=== PATIENT | female | born 1990 | race Caucasian/White ===

== ENCOUNTER 2016-12-14 09:01 | Emergency (ER) | payer OTHER ==
[2016-12-14 09:07] VITALS: RESP 16
[2016-12-14] MEDS ORDERED: LORazepam 2 MG/ML INJ ONE (09:25)
--- NOTE | 2016-12-14 09:37 | CPEKG ---
Heart Rate: 98 RR Interval: 612 P-R Interval: 140 QRSD Interval: 90 QT Interval: 356 QTC Interval: 455 P [place]: 51 QRS [place]: 97 T Wave [place]: 23 EKG Severity - OTHERWISE NORMAL ECG - EKG Impression: SINUS RHYTHM EKG Impression: BORDERLINE RIGHT AXIS DEVIATION EKG Impression: NONSPECIFIC ST_T WAVE ABNORMAILITES Electronically Signed By: Archie Solano 16-Dec-2016 14:45:10
[2016-12-14] MEDS ORDERED: LORazepam 2 MG/ML INJ IVP ONE (09:39)
[2016-12-14 09:42] LABS: % IMMATURE GRANULYOCYTES 0.4 % (0.0-1.1); ABSOLUTE IMMATURE GRANULOCYTES 0.05 10^3/uL (0.00-0.10); ADD DIFF? NO; ADD MORPH? NO; ADD SCAN? NO; ATYPICAL LYMPHOCYTE FLAG 10 (0-99); FRAGMENT RBC FLAG 0 (0-99); HEMATOCRIT 44.9 % (38.0-47.0); HEMOGLOBIN 16.2 g/dL (12.6-16.3); LEFT SHIFT FLG 0 (0-99); LIPEMIA HEMOLYSIS FLAG 90 (0-99); MEAN CELL HEMOGLOBIN 31.6 pg (27.9-34.1); MEAN CELL HEMOGLOBIN CONCENTR. 36.1 g/dL (32.4-36.7); MEAN CELL VOLUME 87.7 fL (81.5-99.8); MEAN PLATELET VOLUME 10.1 fL (8.7-11.7); PLATELET CLUMPS FLAG 10 (0-99); PLATELET COUNT 362 10^3/uL (150-400); RED BLOOD CELL COUNT 5.12 10^6/uL (4.18-5.33); RED CELL DISTRIBUTION WIDTH 12.6 % (11.5-15.2)
[2016-12-14 09:58] LABS: ANION GAP 13 mEq/L (8-16); CALCIUM 10.2 mg/dL (8.5-10.4); CARBON DIOXIDE 20 mEq/l (22-31); CHLORIDE 107 mEq/L (97-110); CREATININE 0.7 mg/dL (0.6-1.0); GLOMERULAR FILTRATION RATE > 60; GLUCOSE 91 mg/dL (70-100); POTASSIUM 4.1 mEq/L (3.5-5.2); SODIUM 140 mEq/L (134-144)
[2016-12-14 10:08] LABS: TROPONIN I < 0.012 ng/mL (0-0.034)
[2016-12-14] MEDS ORDERED: AZITHROMYCIN 250 MG TAB PO ONE (10:22)
--- NOTE | 2016-12-14 10:36 | EDPHY ---
H & P Stated Complaint: sob - Personal History LMP (Females 10-55): 1-7 Days Ago Current Tetanus Diphtheria and Acellular Pertussis (TDAP): No - Medical/Surgical History Hx Asthma: No Hx Chronic Respiratory Disease: No Hx Diabetes: No Hx Cardiac Disease: No Hx Renal Disease: No Hx Cirrhosis: No Hx Alcoholism: No Hx HIV/AIDS: No Hx Splenectomy or Spleen Trauma: No - Social History Smoking Status: Current some day smoker HPI/ROS: Chief complaint: Shortness of breath History of present illness: This is a 26-year-old female who presents to the emergency department for evaluation of shortness of breath. Patient reports the onset of symptoms over the last few days. She states symptoms are slowly worsening. It is now hard to catch her breath. She has associated numbness and tingling in both of her hands. She does have a history of anxiety and is wondering if this is what is causing her symptoms. She does report prior to the onset of trouble breathing she developed cold symptoms including fevers and cough although she feels like those have improved. Review of systems: A 10 point review of systems was obtained and other than described above was negative (Yomi Ornelas) - Physical Exam Exam: General Appearance: Alert, nontoxic. Eyes: Pupils equal and round no pallor or injection. ENT: Tympanic membranes, external auditory canals, external ears and surrounding soft tissue including over the mastoids are unremarkable. Nasopharynx is not injected. There is no rhinorrhea. Oropharynx is mildly injected. There is no edema. There is no exudate. There is no asymmetry. The uvula is midline. No elevation of the tongue. There is no hoarseness, no drooling, no trismus, no stridor. Respiratory: There are no retractions, lungs are clear to auscultation. Cardiovascular: Regular rate and rhythm. Gastrointestinal: Abdomen is soft and nontender, no masses, bowel sounds normal. Neurological: Alert and oriented x4. Strength and sensation intact and symmetrical. Skin: Warm and dry, no rashes. Musculoskeletal: Neck is supple nontender. Extremities are symmetrical, full range of motion. Psychiatric: Patient is oriented X 3, there is no agitation. (Yomi Ornelas) Constitutional: Initial Vital Signs Temperature (C) 37.1 C 12/14/16 09:04 Heart Rate 104 H 12/14/16 09:04 Respiratory Rate 16 12/14/16 09:04 Blood Pressure 120/93 H 12/14/16 09:04 O2 Sat (%) 95 12/14/16 09:04 O2 Delivery Mode Room Air Allergies/Adverse Reactions: No Known Allergies Allergy (Unverified 12/14/16 10:39) Home Medications: Medication Instructions Recorded Azithromycin 250 mg PO DAILY 4 Days 12/14/16 Medical Decision Making - Diagnostics Imaging Results: Imaging Impressions Chest X-Ray 12/14/16 10:01 Impression: Left upper lobe pneumonia. Findings and recommendations discussed with Emergency Department physician, JERSON Enriquez at 10:17 hour, 12/14/2016. Final report concurs with initial preliminary interpretation. ED Course/Re-evaluation: Patient seen under the supervision of my secondary supervising physician Dr. Aleshia Mackenzie. Patient presents to the emergency depart with shortness of breath. She does report a history of anxiety. She is treated with Ativan with improvement in symptoms. She also has been sick recently. Ultimately patient appears to have pneumonia. She is nontoxic. I believe she is appropriate for outpatient management. She is started on azithromycin. No evidence of other pathology with unremarkable EKG, troponin and negative D-dimer. She is discharged home. She is asked to follow up with her primary care doctor for recheck. Strict return precautions are given. Patient voiced understanding and agreement with plan. (Yomi Ornelas) Differential Diagnosis: Included but not limited to bronchitis, pneumonia, pneumothorax, pulmonary embolism, cardiac dysrhythmia, anxiety (Yomi Ornelas) Other Provider: The patient was evaluated and managed by the [facility] Paraprofessional/ Nurse Practitioner. I discussed the patient's presentation and course with the midlevel provider with them and agree with the evaluation. My co-signature indicates that I have reviewed this chart and I agree with the findings and plan of care as documented. I am the secondary supervising physician. (Aleshia Mackenzie) - Data Points Laboratory Results: Laboratory Results 12/14/16 09:25 12/14/16 09:25 12/14/16 12/14/16 12/14/16 09:25 09:25 09:25 WBC RBC Hgb Hct MCV MCH MCHC RDW Plt Count MPV Neut % (Auto) Lymph % (Auto) [place] % (Auto) Eos % (Auto) Baso % (Auto) Nucleat RBC Rel Count Absolute Neuts (auto) Absolute Lymphs (auto) Absolute Monos (auto) Absolute Eos (auto) Absolute Basos (auto) Absolute Nucleated RBC Immature Gran % Immature Gran # D-Dimer < 0.27 ug/mLFEU ug/mLFEU (0.00-0.50) Sodium 140 mEq/L mEq/L (134-144) Potassium 4.1 mEq/L mEq/L (3.5-5.2) Chloride 107 mEq/L mEq/L (97-110) Carbon Dioxide 20 mEq/l L mEq/l (22-31) Anion Gap 13 mEq/L mEq/L (8-16) BUN 9 mg/dL mg/dL (7-23) Creatinine 0.7 mg/dL mg/dL (0.6-1.0) Estimated GFR > 60 Glucose 91 mg/dL mg/dL (70-100) Calcium 10.2 mg/dL mg/dL (8.5-10.4) Troponin I < 0.012 ng/mL ng/mL (0-0.034) Beta HCG, Qual NEGATIVE 12/14/16 09:25 WBC 12.99 10^3/uL H 10^3/uL (3.80-9.50) RBC 5.12 10^6/uL 10^6/uL (4.18-5.33) Hgb 16.2 g/dL g/dL (12.6-16.3) Hct 44.9 % % (38.0-47.0) MCV 87.7 fL fL (81.5-99.8) MCH 31.6 pg pg (27.9-34.1) MCHC 36.1 g/dL g/dL (32.4-36.7) RDW 12.6 % % (11.5-15.2) Plt Count 362 10^3/uL 10^3/uL (150-400) MPV 10.1 fL fL (8.7-11.7) Neut % (Auto) 80.7 % H % (39.3-74.2) Lymph % (Auto) 15.6 % % (15.0-45.0) Winston % (Auto) 2.8 % L % (4.5-13.0) Eos % (Auto) 0.2 % L % (0.6-7.6) Baso % (Auto) 0.3 % % (0.3-1.7) Nucleat RBC Rel Count 0.0 % % (0.0-0.2) Absolute Neuts (auto) 10.49 10^3/uL H 10^3/uL (1.70-6.50) Absolute Lymphs (auto) 2.02 10^3/uL 10^3/uL (1.00-3.00) Absolute Monos (auto) 0.37 10^3/uL 10^3/uL (0.30-0.80) Absolute Eos (auto) 0.02 10^3/uL L 10^3/uL (0.03-0.40) Absolute Basos (auto) 0.04 10^3/uL 10^3/uL (0.02-0.10) Absolute Nucleated RBC 0.00 10^3/uL 10^3/uL (0-0.01) Immature Gran % 0.4 % % (0.0-1.1) Immature Gran # 0.05 10^3/uL 10^3/uL (0.00-0.10) D-Dimer Sodium Potassium Chloride Carbon Dioxide Anion Gap BUN Creatinine Estimated GFR Glucose Calcium Troponin I Beta HCG, Qual Medications Given: Discontinued Medications Albuterol Sulfate (Proventil Inh Prepack) 1 mdi TAKEHOME EDNOW ONE Stop: 12/14/16 11:03 Last Admin: 12/14/16 11:05 Dose: 1 mdi Azithromycin (Zithromax) 500 mg PO EDNOW ONE PRN Reason: Protocol Stop: 12/14/16 10:23 Last Admin: 12/14/16 10:50 Dose: 500 mg Lorazepam (Ativan Injection) 1 mg IVP ONCE ONE Stop: 12/14/16 09:40 Last Admin: 12/14/16 09:39 Dose: 1 mg Departure - Departure Disposition: Home, Routine, Self-Care Clinical Impression: Pneumonia Qualifiers: Pneumonia type: due to unspecified organism Laterality: left Lung location: upper lobe of lung Qualified Code(s): J18.1 - Lobar pneumonia, unspecified organism Condition: Good Instructions: Bacterial Pneumonia (ED) Additional Instructions: Follow-up with a primary care doctor for recheck If symptoms worsen or new symptoms develop return to the emergency room for recheck Referrals: FEROZ TALAVERA [Other] - As per Instructions Stephany Nina MD [Medical Doctor] - As per Instructions [facility],. [Clinic] - As per Instructions Prescriptions: Azithromycin 250 mg PO DAILY 4 Days
[2016-12-14 10:51] VITALS: BP 126/93; PULSE 68; TEMP 98.2; O2SAT 97
[2016-12-14] MEDS ORDERED: ALBUTEROL INH PREPACK MDI TAKEHOME ONE (11:02)
== END 2016-12-14 11:15 | disposition home or self-care (01) ==
DX: J18.9 Pneumonia, unspecified organism (principal); F17.200 Nicotine dependence, unspecified, uncomplicated
CPT/HCPCS: 96374; J2060